=== PATIENT | female | born 1940 | race Caucasian/White ===

== ENCOUNTER 2018-06-24 14:46 | Emergency (ER) | payer MEDICARE, OTHER ==
[~2018-06-24 14:46] MED LIST: Sodium Chloride 0.9% 100 ML BAG ONE
--- NOTE | 2018-06-24 15:14 | RAD ---
Chest AP view INDICATION: Syncope COMPARISON: None FINDINGS: Lungs:The lungs are clear Cardiac silhouette pulmonary vasculature:The cardiomediastinal silhouette appears within normal limit s. Pleural spaces:No pleural effusion or pneumothorax is demonstrated. Upper abdomen:No abnormality seen. Osseous structures: There is healed deformity involving the right midshaft clavicle. There is scatter ed degenerative and osteoarthritic change present. Additional findings:None. IMPRESSION: No acute cardiopulmonary abnormality.
[2018-06-24 15:18] LABS: ALT (SGPT) 15 U/L (8-55); AST (SGOT) 23 U/L (5-34); Alkaline Phosphatase 74 U/L (40-150); Anion Gap 16 mmol/L (10-20); BUN (Urea Nitrogen) 11 mg/dL (9.8-20.1); Bilirubin, Total 0.8 mg/dL (0.2-1.2); CK (CPK) 61 U/L (29-168); Calc. Creatinine Clearance 0 mL/min (70-130); Calcium 9.6 mg/dL (7.8-10.44); Carbon Dioxide 26 mmol/L (23-31); Chloride 97 mmol/L (98-107); Estimated GFR-MDRD 37; Glucose 172 mg/dL (83-110); Potassium 3.8 mmol/L (3.5-5.1); Sodium 135 mmol/L (136-145)
[2018-06-24 15:26] LABS: Eosinophils 1 % (0-10); Hemoglobin 14.1 g/dL (12.0-16.0); Lymphocytes 5 % (21-51); MDiff Complete? YES; Mean Corpuscular Hemoglobin 32.5 pg (27.0-31.0); Mean Corpuscular Volume 95.8 fL (78.0-98.0); Mean Platelet Volume 7.8 fL (7.4-10.4); Monocytes 7 % (0-10); Neutrophil 72 % (42-75); Platelet Count 226 thou/uL (130-400); Platelet Morphology Comment Appears Adequate; RBC Distribution Width 12.4 % (11.5-14.5); RBC Morphology Normal; Reactive Lymphocytes 15 % (0-10); Red Blood Cell (RBC) Count 4.34 mill/uL (4.20-5.40); White Blood Cell (WBC) Count 10.8 thou/uL (4.8-10.8)
[2018-06-24] MEDS ORDERED: Sodium Chloride 0.9% 1,000 ML ONE (15:35)
[2018-06-24 15:43] LABS: Bilirubin Small (Negative); Blood, Urine Negative (Negative); Clarity Hazy (Clear); Glucose, Urine (Dipstick) Negative (Negative); Leukocyte Moderate (Negative); Nitrite Negative (Negative); Protein, Urine (Dipstick) 30 mg/dL (Neg-Trace); Specific Gravity, Urine 1.015 (1.005-1.030)
[2018-06-24 15:46] LABS: Bacteria/HPF 1+ HPF (None Seen); Other Casts/LPF 0-3 MIXED CASTS LPF (0-3 Hyaline); RBC/HPF 0-3 HPF (0-3)
[2018-06-24] MEDS ORDERED: cefTRIAXone\\ROCEPHIN 1 GM VIAL ONE (15:53)
== END 2018-06-24 16:24 | disposition short-term general hospital (02) ==
LOC: MADERS 14:46
DX: R55 Syncope and collapse (principal); N39.0 Urinary tract infection, site not specified; F17.220 Nicotine dependence, chewing tobacco, uncomplicated; F41.9 Anxiety disorder, unspecified; I10 Essential (primary) hypertension; Z79.899 Other long term (current) drug therapy; Z79.82 Long term (current) use of aspirin
CPT/HCPCS: 36415; 71045; 80053; 81003; 81015; 82550; 83605; 84484; 85025; 85379; 87040; 87086; 93005; 96365; J0696; J3490; J7050

== ENCOUNTER 2018-09-03 15:04 | Emergency (ER) | payer MEDICARE, OTHER ==
[2018-09-03 15:54] LABS: ALT (SGPT) 12 U/L (8-55); AST (SGOT) 18 U/L (5-34); Albumin 3.9 g/dL (3.4-4.8); Alkaline Phosphatase 60 U/L (40-150); Anion Gap 16 mmol/L (10-20); BUN (Urea Nitrogen) 13 mg/dL (9.8-20.1); Bilirubin, Total 0.6 mg/dL (0.2-1.2); CK (CPK) 62 U/L (29-168); Calc. Creatinine Clearance 0 mL/min (70-130); Calcium 8.6 mg/dL (7.8-10.44); Carbon Dioxide 24 mmol/L (23-31); Chloride 103 mmol/L (98-107); Estimated GFR-MDRD 53; Globulin 2.4 g/dL (2.4-3.5); Glucose 87 mg/dL (83-110); Potassium 3.8 mmol/L (3.5-5.1); Protein, Total 6.3 g/dL (6.0-8.3); Sodium 139 mmol/L (136-145)
[2018-09-03 15:56] LABS: #Basophils 0.1 thou/uL (0.0-0.2); #Eosinphils 0.1 thou/uL (0.0-0.7); #Monocytes 0.5 thou/uL (0.11-0.59); #Neutrophils 6.2 thou/uL (1.40-6.50); %Basophils 0.7 % (0.0-1.0); %Eosinophils 1.8 % (0.0-10.0); %Monocytes 6.4 % (0.0-10.0); Hemoglobin 13.1 g/dL (12.0-16.0); Mean Corpuscular HGB CONC 34.2 g/dL (32.0-36.0); Mean Corpuscular Hemoglobin 32.2 pg (27.0-31.0); Mean Corpuscular Volume 94.1 fL (78.0-98.0); Mean Platelet Volume 8.5 fL (7.4-10.4); Platelet Count 168 thou/uL (130-400); RBC Distribution Width 11.5 % (11.5-14.5); Red Blood Cell (RBC) Count 4.05 mill/uL (4.20-5.40); White Blood Cell (WBC) Count 7.9 thou/uL (4.8-10.8)
[2018-09-03 16:11] LABS: Bilirubin Negative (Negative); Blood, Urine Negative (Negative); Glucose, Urine (Dipstick) Negative (Negative); Leukocyte Negative (Negative); Nitrite Negative (Negative); Protein, Urine (Dipstick) Negative (Neg-Trace); Urobilinogen 0.2 mg/dL (Less than 2)
[2018-09-03 16:13] LABS: Clarity Hazy (Clear)
== END 2018-09-03 16:47 | disposition home or self-care (01) ==
LOC: MADERS 15:04
DX: R55 Syncope and collapse (principal); I10 Essential (primary) hypertension; F41.9 Anxiety disorder, unspecified; F17.220 Nicotine dependence, chewing tobacco, uncomplicated
CPT/HCPCS: 36415; 80053; 81003; 82550; 84484; 85025; 93005; 94760

== ENCOUNTER 2019-07-18 04:00 | Emergency (ER) | payer MEDICARE, OTHER ==
[2019-07-18] MEDS ORDERED: Aspirin Chewable 81 MG TAB ONE (04:25)
[2019-07-18] MEDS ORDERED: Metoprolol Tartrate 5 MG/5 ML VIAL ONE ×2 (04:25→06:26)
[2019-07-18 04:33] LABS: #Basophils 0.1 thou/uL (0.0-0.2); #Eosinphils 0.2 thou/uL (0.0-0.7); #Lymphocytes 1.7 thou/uL (1.20-3.40); #Monocytes 0.7 thou/uL (0.11-0.59); #Neutrophils 10.4 thou/uL (1.40-6.50); %Basophils 0.6 % (0.0-1.0); %Eosinophils 1.6 % (0.0-10.0); %Lymphocytes 12.9 % (21.0-51.0); %Monocytes 5.3 % (0.0-10.0); %Neutrophils 79.6 % (42.0-75.0); Hemoglobin 13.3 g/dL (12.0-16.0); Mean Corpuscular HGB CONC 33.2 g/dL (32.0-36.0); Mean Corpuscular Hemoglobin 32.6 pg (27.0-31.0); Mean Corpuscular Volume 98.2 fL (78.0-98.0); Platelet Count 176 thou/uL (130-400); RBC Distribution Width 11.7 % (11.5-14.5); Red Blood Cell (RBC) Count 4.06 mill/uL (4.20-5.40); White Blood Cell (WBC) Count 13.1 thou/uL (4.8-10.8)
[2019-07-18 04:45] LABS: Bilirubin Negative (Negative); Blood, Urine Trace (Negative); Clarity Slightly Cloudy (Clear); Glucose, Urine (Dipstick) Negative (Negative); Leukocyte Trace (Negative); Nitrite Negative (Negative); Protein, Urine (Dipstick) Negative (Neg-Trace); Urobilinogen 0.2 mg/dL (Less than 2)
[2019-07-18 04:53] LABS: Bacteria/HPF 4+ HPF (None Seen); RBC/HPF 0-3 HPF (0-3); Squamous Epithelial 0-3 HPF (0-3); WBC/HPF 0-3 HPF (0-3)
[2019-07-18 04:54] LABS: ALT (SGPT) 16 U/L (8-55); AST (SGOT) 20 U/L (5-34); Albumin 4.2 g/dL (3.4-4.8); Alkaline Phosphatase 73 U/L (40-110); Anion Gap 17 mmol/L (10-20); BUN (Urea Nitrogen) 7 mg/dL (9.8-20.1); Bilirubin, Total 0.4 mg/dL (0.2-1.2); CK (CPK) 118 U/L (29-168); Calc. Creatinine Clearance 0 mL/min (70-130); Calcium 8.9 mg/dL (7.8-10.44); Carbon Dioxide 23 mmol/L (23-31); Chloride 96 mmol/L (98-107); Estimated GFR-MDRD 65; Globulin 2.9 g/dL (2.4-3.5); Glucose 126 mg/dL (83-110); Potassium 3.4 mmol/L (3.5-5.1); Protein, Total 7.1 g/dL (6.0-8.3); Sodium 133 mmol/L (136-145)
[2019-07-18 04:57] LABS: CKMB 2.7 ng/mL (0-6.6)
[2019-07-18] MEDS ORDERED: cefTRIAXone\\ROCEPHIN 2 GM VIAL ONE (05:02)
[2019-07-18] MEDS ORDERED: Sodium Chloride 0.9% 100 ML ONE (05:03)
[2019-07-18] MEDS ORDERED: Sodium Chloride 0.9% 1,000 ML BAG ONE (06:51)
[2019-07-18] MEDS ORDERED: Sodium Chloride 0.9% 100 ML BAG ONE (06:51)
--- NOTE | 2019-07-18 07:53 | RAD ---
RADIOGRAPH CHEST 1 VIEW: DATE: 07/18/2019 HISTORY: 78-year-old female with tachycardia and chest pain FINDINGS: There are no airspace densities, pulmonary edema, pneumothorax, or cardiomegaly. The lateral costophr enic angles are sharp. IMPRESSION: No acute cardiopulmonary findings.
--- NOTE | 2019-07-18 08:58 | CT ---
PRELIMINARY REPORT/[facility]/EMERGENCY AFTER HOURS PROCEDURE: EXAM: CTA Chest, With Contrast. DATE/ TIME: 07/18/2019, 5:26 AM INDICATION: Dyspnea. Elevated d-dimer. TECHNIQUE: During the rapid intravenous administration of 110 mL Isovue-370, helical CT of the chest was performed utilizing angiographic protocol. Multiplanar MIPs were generated and reviewed. Exam was performed using one or more of the following dose reduction techniques: automated exposure contr ol, adjustment of the mA and/or kV according to patient size, or use of iterative reconstruction tech nique. COMPARISON: None. FINDINGS: The heart shows mild biatrial chamber dilatation. Pulmonary arterial system is well-opaci fied and there is no intraluminal filling defect. Aorta is unfolded but without aneurysm or dissecti on. Small scattered atherosclerotic calcified plaques within the aorta are noted. Numerous tiny rut cified lymph nodes are seen. Lungs show no infiltrate or mass. There is no pleural effusion. Imaging continues into the abdomen to a level 1 cm below the renal artery takeoffs. Visualized right kidney shows cortical atrophy. No upper abdominal acute pathology is seen. Chronic fracture-nonuni on of the right clavicle is partially seen. A severe compression deformity of L1 is noted. Healed s ternal fracture deformity is seen. Patient does have a [id number] thoracic kyphotic deformit y. No acute osseous abnormality is seen. IMPRESSION: 1. No pulmonary thromboembolism. 2. Mild cardiomegaly. 3. Thoracic kyphosis with severe compression deformity of L1. By definition, this patient is osteop orotic. ELECTRONICALLY SIGNED BY: Connor Valdovinos DO Jul 18, 2019 5:53:44 AM CDT This report is intended for review by the ordering physician only, in accordance of law. If you recei ve this report in error, please call [facility] at [phone]. FINAL REPORT CTA CHEST: Axial tomograms obtained following a pulmonary angio protocol with multiplanar reconstructions and 3D postprocessing. INDICATION: Dyspnea. Elevated D-dimer. FINDINGS: No evidence of pulmonary embolus. Thoracic aorta is unremarkable with no evidence of dissection. Th e lungs appear clear of infiltrate. I am in agreement with the preliminary report issued by [facility]. POS: [id number]
[2019-07-18] MEDS ORDERED: Iopamidol 370 76% 125 ML VIAL FS ONE (13:13)
== END 2019-07-18 08:10 | disposition home or self-care (01) ==
LOC: MADERS 04:00
DX: E87.1 Hypo-osmolality and hyponatremia (principal); F10.99 Alcohol use, unspecified with unspecified alcohol-induced disorder; R00.0 Tachycardia, unspecified; E03.9 Hypothyroidism, unspecified; N39.0 Urinary tract infection, site not specified; I10 Essential (primary) hypertension; Y90.0 Blood alcohol level of less than 20 mg/100 ml; F17.220 Nicotine dependence, chewing tobacco, uncomplicated; Z79.899 Other long term (current) drug therapy
CPT/HCPCS: 71045; 71275; 80053; 80307; 81003; 81015; 82550; 82553; 84443; 84484; 85025; 85379; 87077; 87086; 87186; 93005; 94760; 96374; 96375; 96376; J0696; J3490; J7050; Q9967

== ENCOUNTER 2020-05-14 16:07 | Outpatient (CLI) | payer MEDICARE, OTHER ==
[2020-05-14 17:21] LABS: Bilirubin Negative (Negative); Blood, Urine Negative (Negative); Clarity Clear (Clear); Glucose, Urine (Dipstick) Negative (Negative); Ketone, Urine Negative (Negative); Leukocyte Negative (Negative); Nitrite Negative (Negative); Protein, Urine (Dipstick) Negative (Neg-Trace); Specific Gravity, Urine 1.015 (1.005-1.030); Urobilinogen 0.2 mg/dL (Less than 2); pH, Urine 7.5 (5.0-9.0)
[2020-05-14 17:38] LABS: Bacteria/HPF Rare-Few HPF (None Seen); RBC/HPF None Seen HPF (0-3); Squamous Epithelial 0-3 HPF (0-3); WBC/HPF None Seen HPF (0-3); Yeast-Budding Rare HPF (None Seen)
== END 2020-05-14 16:08 | disposition home or self-care (01) ==
LOC: MADLAB 16:07
PROVIDERS: ATTEND Physician Assistant
DX: Z87.440 Personal history of urinary (tract) infections (principal)
CPT/HCPCS: 81001; 87086

== ENCOUNTER 2020-06-30 13:57 | Emergency (ER) | payer MEDICARE, OTHER ==
[~2020-06-30 13:57] MED LIST changes: +Sodium Chloride 0.9% 1,000 ML BAG ONE; -Sodium Chloride 0.9% 100 ML BAG ONE; +Sodium Chloride 0.9% 500 ML BAG ONE
[2020-06-30 14:47] LABS: Band 15 % (5-11); Hemoglobin 16.2 g/dL (12.0-16.0); Lymphocytes 20 % (21-51); MDiff Complete? YES; Mean Corpuscular Volume 96.9 fL (78.0-98.0); Mean Platelet Volume 10.8 fL (7.4-10.4); Monocytes 4 % (0-10); Neutrophil 59 % (42-75); Platelet Count 147 thou/uL (130-400); Platelet Morphology Comment Appears Adequate; RBC Distribution Width 11.8 % (11.5-14.5); RBC Morphology Normal; Reactive Lymphocytes 2 % (0-10); Red Blood Cell (RBC) Count 5.06 mill/uL (4.20-5.40); White Blood Cell (WBC) Count 10.1 thou/uL (4.8-10.8)
[2020-06-30 14:52] LABS: ALT (SGPT) 26 U/L (8-55); AST (SGOT) 38 U/L (5-34); Albumin 4.4 g/dL (3.4-4.8); Alcohol 22 mg/dL (Less than 10); Alkaline Phosphatase 71 U/L (40-110); Anion Gap 26 mmol/L (10-20); BUN (Urea Nitrogen) 11 mg/dL (9.8-20.1); Bilirubin, Total 0.6 mg/dL (0.2-1.2); CK (CPK) 69 U/L (29-168); Calc. Creatinine Clearance 0 mL/min (70-130); Calcium 9.1 mg/dL (7.8-10.44); Carbon Dioxide 17 mmol/L (23-31); Chloride 95 mmol/L (98-107); Glucose 76 mg/dL (83-110); Potassium 3.4 mmol/L (3.5-5.1); Protein, Total 7.4 g/dL (5.8-8.1); Sodium 135 mmol/L (136-145)
[2020-06-30 16:48] LABS: Bilirubin Negative (Negative); Blood, Urine Negative (Negative); Glucose, Urine (Dipstick) Negative (Negative); Ketone, Urine 15 mg/dL (Negative); Leukocyte Negative (Negative); Nitrite Negative (Negative); Protein, Urine (Dipstick) Trace mg/dL (Neg-Trace); Urobilinogen 0.2 mg/dL (Less than 2)
[2020-06-30 16:55] LABS: Clarity Hazy (Clear)
== END 2020-06-30 17:00 | disposition home or self-care (01) ==
LOC: MADERS 13:57
DX: I95.1 Orthostatic hypotension (principal); F10.10 Alcohol abuse, uncomplicated; Y90.1 Blood alcohol level of 20-39 mg/100 ml; E86.0 Dehydration; I10 Essential (primary) hypertension; F17.220 Nicotine dependence, chewing tobacco, uncomplicated; Z79.899 Other long term (current) drug therapy
CPT/HCPCS: 70450; 71045; 80053; 80307; 81003; 82550; 84443; 84484; 85025; 93005; 94760; J7030; J7050

== ENCOUNTER 2022-06-15 15:15 | Emergency (ER) | payer MEDICARE, OTHER ==
[2022-06-15] MEDS ORDERED: traMADol HCl 50 MG TAB ONE (15:46)
== END 2022-06-15 17:24 | disposition home or self-care (01) ==
LOC: MADERS 15:15
DX: S32.030A Wedge compression fracture of third lumbar vertebra, initial encounter for closed fracture (principal); M25.552 Pain in left hip; M25.551 Pain in right hip; M54.16 Radiculopathy, lumbar region; I10 Essential (primary) hypertension; E78.5 Hyperlipidemia, unspecified; F17.220 Nicotine dependence, chewing tobacco, uncomplicated; Z79.899 Other long term (current) drug therapy; X58.XXXA Exposure to other specified factors, initial encounter
CPT/HCPCS: 70450; 72131; 72192